=== PATIENT | female | born 1980 | race Caucasian/White ===

== ENCOUNTER → 2023-05-13 12:46 | Outpatient (CLI) | payer MEDICAID, SELFPAY ==
[2023-05-13 15:14] LABS: Thyroid Stimulating Hormone 0.23 uIU/mL (0.465-4.68)
[2023-05-13 15:33] LABS: Free T4 (Free Thyroxine) 2.76 ng/dl (0.78-2.19)
[2023-05-15 12:50] LABS: Triiodothyronine (T3) Total 160 ng/dL (71-180)
== END ==
LOC: LAB 12:51
PROVIDERS: PCP Family Medicine; Visit Provider Family Medicine
DX: E03.9 Hypothyroidism, unspecified (principal)
CPT/HCPCS: 36415; 84439; 84443; 84480